=== PATIENT | male | born 1975 | race Two or more races ===

== ENCOUNTER 2018-06-29 22:00 | Emergency (ER) | payer OTHER ==
[~2018-06-29] VITALS: Ht 177.8 cm; Wt 103.4 kg
[~2018-06-29 22:00] MED LIST: NO TOMA
[2018-06-29] MEDS ORDERED: ZYRTEC10 MG (22:11)
[2018-06-29] MEDS ORDERED: DEXILANT60 MG (22:11)
== END 2018-06-29 23:58 | disposition home or self-care (01) ==
LOC: ER 22:00
DX: S10.83XA Contusion of other specified part of neck, initial encounter (principal); S30.0XXA Contusion of lower back and pelvis, initial encounter; S20.211A Contusion of right front wall of thorax, initial encounter; W10.8XXA Fall (on) (from) other stairs and steps, initial encounter; Y93.89 Activity, other specified; Y92.098 Other place in other non-institutional residence as the place of occurrence of the external cause; Y99.8 Other external cause status

== ENCOUNTER 2018-07-18 20:01 | Emergency (ER) | payer OTHER ==
[~2018-07-18] VITALS: Ht 177.8 cm; Wt 102.5 kg
[~2018-07-18 20:01] MED LIST changes: +DEXILANT60 MG; +ZYRTEC10 MG
== END 2018-07-18 23:39 | disposition home or self-care (01) ==
LOC: ER 20:01
DX: K52.9 Noninfective gastroenteritis and colitis, unspecified (principal)

== ENCOUNTER 2018-11-30 06:55 | Emergency (ER) | payer OTHER ==
[~2018-11-30] VITALS: Ht 177.8 cm; Wt 106.6 kg
== END 2018-11-30 11:48 | disposition home or self-care (01) ==
LOC: ER 06:55
DX: N20.1 Calculus of ureter (principal)